=== PATIENT | male | born 1960 | race Caucasian/White ===

== ENCOUNTER 2020-02-25 08:16 | Inpatient (IN) | payer BC ==
[~2020-02-25] VITALS: Ht 175.3 cm; Wt 87.3 kg
[~2020-02-25 08:16] MED LIST: HYZAAR 25 MG-101 TAB PO; VYTORIN 10 MG-81 TAB PO
[2020-03-13] VITALS (12 sets, daily range): BP systolic 97–112; BP diastolic 54–69; PULSE 63–99; TEMP 97.6–98.3
[2020-03-13 06:19] LABS: BASO # 0.1 (0.0-0.2); BASO % 0.8 % (0.0-2.0); EOS # 0.3 (0.0-0.7); EOS % 2.7 % (0-4.0); GRAN # 6.9 (1.4-6.5); GRAN % 67.2 % (42.2-75.2); HEMATOCRIT 47.9 % (42.0-52.0); HEMOGLOBIN 16.1 g/dl (13.5-18.0); LYMPH # 2.3 (1.2-3.4); LYMPH % 22.3 % (20.0-51.0); MEAN CELL VOLUME 89 fl (80.0-100.0); MEAN CORPUSCULAR HEMOGLOBIN 30 pg (27.0-31.0); MEAN CORPUSCULAR HGB CONC 34 g/dl (33.0-37.0); MEAN PLATELET VOLUME 9.7 fl (7.4-10.4); MONO # 0.7 (0.1-0.6); MONO % 6.7 % (1.7-9.3); PLATELET COUNT 220 K/mm3 (130-400); RED BLOOD COUNT 5.41 M/mm3 (4.20-5.60); REDCELL DISTRIBUTION WIDTH-CV 12.3 % (11.5-14.5)
[2020-03-13 06:25] LABS: ALBUMIN 4.3 gm/dL (3.5-5.0); BILIRUBIN,TOTAL 0.6 mg/dL (0.0-1.0); CREATININE, serum 1.18 (0.66-1.25); POTASSIUM 4.1 mmol/L (3.4-5.0); TOTAL PROTEIN 7.4 gm/dL (6.4-8.2)
[2020-03-13] MEDS ORDERED: ATACAND HCT 321 TA1 PO (06:26)
[2020-03-13] MEDS ORDERED: ASPIRIN 81M81 MG/TA2 PO (06:27)
--- NOTE | 2020-03-13 11:20 | NUR ---
PATIENT ARRIVED TO ROOM 348 POST-OP FROM PACU. PATIENT IS SLIGHTLY DROWSY. POST-OP VSS. ABDOMINAL LAP SITES X5 AIDEN WITH EDGES WELL APPROXIMATED. LEFT-SIDED ABDOMINAL LOLLY DRAIN TO BULB SUCTION. SHADING PRESENT ON GAUZE & HYPAFIX DRAIN DRESSING THAT IS WITHIN THE BORDERS DRAWN BY THE PACU NURSE. POSITIVE PEDAL PULSES EQUAL BILATERALLY. SCD'S TO BLE. FINE CRACKLES AUSCULTATED OVER LUNG BASES. PATIENT DENIES SOB OR A PRODUCTIVE COUGH. CALL LIGHT WITHIN REACH. WILL CONTINUE TO MONITOR.
--- NOTE | 2020-03-13 12:05 | NUR ---
PATIENT TOLERATING CLEAR LIQUIDS WITHOUT COMPLAINTS OF N/V. POST-OP VSS.
--- NOTE | 2020-03-13 15:05 | NUR ---
PATIENT POST-OP VSS AND COMPLETE. CALL LIGHT WITHIN REACH. PATIENT DENIES NEEDS AT THIS TIME.
--- NOTE | 2020-03-13 17:45 | NUR ---
PATIENT ASSISTED UP TO THE CHAIR WITH STAFF. HAWTHORNE CATHETER DRAINING PEACH COLORED URINE. BLOODY DRAINAGE PRESENT IN LOLLY DRAIN. PATIENT REPORTING THAT HIS PAIN IS WELL CONTROLLED WITH THE SCHEDULED MEDICATIONS. CALL LIGHT WITHIN REACH. NO OTHER NEEDS AT THIS TIME.
--- NOTE | 2020-03-13 20:49 | NUR ---
PT COMPLAINING OF HEARTBURN. NEW ORDER FOR TUMS RECEIVED FROM DR PÉREZ. MEDICATED AT THIS TIME WITH TUMS AND HS MEDS. HAS IVF INFUSING TO LEFT HAND WITHOUT REDNESS OR SWELLING. HAS BEEN UP INDEPENDENTLY IN ROOM. HAWTHORNE TO BSD WITH YELLOW URINE. IS ALERT AND ORIENTED. LOLLY WITH BLOODY DRAINAGE, 30CC EMPTIED AT THIS TIME.
--- NOTE | 2020-03-13 22:46 | NUR ---
STILL HAVING HEARTBURN, TUMS GIVEN.
[2020-03-14 00:03] VITALS: BP 108/54; PULSE 70; TEMP 98.3
--- NOTE | 2020-03-14 01:05 | NUR ---
TUMS AND SCHEDULED ES TYLENOL GIVEN.
[2020-03-14 03:48] VITALS: BP 92/48; PULSE 67; TEMP 97.9
--- NOTE | 2020-03-14 04:28 | NUR ---
PT AWAKE, WATCHING TV. SCHEDULED IV TORADOL GIVEN. EMPTIED 20CC FROM LOLLY AT THIS TIME AND HAWTHORNE FOR 500CC. LAP SITES GLUED AND DRY. REPORTS MOST PAIN AT RT LOWER ABD LAP SITE.
[2020-03-14 07:17] LABS: CALCIUM 8.1 mg/dL (8.4-10.2); CREATININE, serum 1.32 (0.66-1.25)
[2020-03-14 07:19] LABS: HEMOGLOBIN 11.9 g/dl (13.5-18.0)
[2020-03-14 08:00] VITALS: BP 96/52; PULSE 68; TEMP 97.8
--- NOTE | 2020-03-14 09:51 | NUR ---
PATIENT SHIFT ASSESSMENT COMPLETED AND AM MEDICATIONS GIVEN AT THIS TIME. PATIENT REPORTS THAT HIS PAIN IS DOING WELL TODAY AND IS FAIRLY MINIMAL WITH THE MEDICATION REGIMEN HE IS ON. ABDOMEN IS DISTENDED, BUT SOFT. BOWEL SOUNDS ACTIVE ALL FOUR QUADRANTS. PATIENT IS PASSING GAS AND REPORTS HAVING A BM THIS MORNING. 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 LEFT-SIDED ABDOMINAL LOLLY DRAIN TO BULB SUCTION. BLOOD DRAINAGE PRESENT ON GAUZE & TEGADERM DRESSING. HAWTHORNE CATHETER TO DEPENDENT DRAINAGE. CALL LIGHT IN REACH. PATIENT DENIES ANY NEEDS AT THIS TIME.
[2020-03-14 11:46] VITALS: BP 106/59; PULSE 66; TEMP 98.2
--- NOTE | 2020-03-14 13:55 | NUR ---
LEFT HAND INT DISCONTINUED PER PENDING DISCHARGE. TIP INTACT. PATIENT TOLERATED WELL. LOLLY DRAIN REMOVED PER DOCTOR ORDERS. GAUZE & TEGADERM DRESSING PLACED OVER LOLLY DRAIN SITE. PATIENT TOLERATED WELL. HAWTHORNE CATHETER EDUCATION REVIEWED WITH PATIENT. CATHETER CHANGED OVER TO LEG BAG. DISCHARGE INSTRUCTIONS REVIEWED WITH PATIENT. QUESTIONS SOUGHT AND ANSWERED. PATIENT PERSONAL BELONGINGS GATHERED. AWAITING RIDE FOR PATIENT DISCHARGE.
--- NOTE | 2020-03-14 14:54 | NUR ---
PATIENT TAKEN TO PERSONAL VEHICLE BY SURGICAL STAFF. PATIENT DISCHARGED.
== END 2020-03-14 14:54 | disposition home or self-care (01) | DRG 708 ==
LOC: INPTSU 03-13 05:17 → SURG 03-13 05:17
PROVIDERS: ADMIT Urology
PROC: 07TC4ZZ Resection of Pelvis Lymphatic, Percutaneous Endoscopic Approach (ICD-10-PCS; 2020-03-13)
PROC: 8E0W4CZ Robotic Assisted Procedure of Trunk Region, Percutaneous Endoscopic Approach (ICD-10-PCS; 2020-03-13)
PROC: 0VT04ZZ Resection of Prostate, Percutaneous Endoscopic Approach (ICD-10-PCS; principal; 2020-03-13 07:30)
DX: C61 Malignant neoplasm of prostate (principal); E78.5 Hyperlipidemia, unspecified; I10 Essential (primary) hypertension; F17.210 Nicotine dependence, cigarettes, uncomplicated; E11.9 Type 2 diabetes mellitus without complications; Z90.49 Acquired absence of other specified parts of digestive tract
CPT/HCPCS: A4314; J0690; J1100; J1885; J2405; J2704; J7120